=== PATIENT | male | born 1960 | race Caucasian/White ===

== ENCOUNTER 2020-08-03 13:48 | Outpatient (CLI) | payer OTHER ==
--- NOTE | 2020-08-03 15:03 | RAD ---
Exam: Lumbar spine 4 views HISTORY: Back pain, worsening. FINDINGS: Lateral neutral, lateral flexion and lateral extension views demonstrate 5 lumbar type vert ebra. Vertebral body heights are maintained. There is no fracture. Spondylolisthesis: L5-S1: 3.8 mm of anterolisthesis in the neutral position, 6 mm of anterolisthesis upon flexion, 3.9 mm anterolisthesis upon extension There is multilevel facet arthropathy at L3-L4, L4-L5 and L5-S1. Hip prosthesis is noted IMPRESSION: 1. Grade 1 anterolisthesis of L5 upon S1 which increases upon flexion
--- NOTE | 2020-08-03 15:59 | CT ---
Exam: CT lumbar spine without contrast HISTORY: Low back pain. Bilateral buttock pain. Symptoms radiate down the right leg to his foot. COMPARISON: None FINDINGS: Sludge and stones in the gallbladder. Nonobstructive calculi in the right renal pelvis. Sym metric attenuation the paraspinal muscles. Visualized alimentary canal has a normal appearance. 4. Lumbar type vertebra. Lumbar spine vertebral body height is maintained. No fracture. No spondyloli sthesis or spondylolysis. T10-T11: Vacuum disc phenomenon. No posterior disc abnormality. No significant central canal stenosis . Patent bilateral neural foramina T11-T12: No significant central canal stenosis or significant neural foraminal narrowing T12-L1: No significant central canal stenosis or significant neural foraminal narrowing L1-L2: Broad-based disc bulge with resultant mild central canal stenosis. Patent bilateral neural for sofie L2 to-L3: Broad-based disc bulge, ligament flavum thickening and facet hypertrophy result in mild rodney tral canal stenosis. Mild bilateral neural foramina L3-L4: Broad-based disc bulge. Mild central canal stenosis and mild bilateral foraminal narrowing L4-S1: Broad-based disc bulge. Mild central canal stenosis. Mild to moderate bilateral neural foramin al narrowing. There is bilateral facet hypertrophy with vacuum joint phenomenon involving the right facet joint. IMPRESSION: Multilevel degenerative changes of the lumbar spine as detailed above. Transcribed Date/Time: 08/03/2020 4:14 PM
== END 2020-08-03 13:49 | disposition home or self-care (01) ==
LOC: SCSCT 13:48
PROVIDERS: ATTEND Neurological Surgery
DX: M47.26 Other spondylosis with radiculopathy, lumbar region (principal); M43.17 Spondylolisthesis, lumbosacral region
CPT/HCPCS: 72100; 72131

== ENCOUNTER 2020-10-27 08:19 | Outpatient (CLI) | payer OTHER ==
[2020-10-27 14:53] LABS: Mean Corpuscular HGB CONC 33.2 G/DL (32.0-36.0); Mean Corpuscular Hemoglobin 33.1 PG (27.0-33.0); Mean Corpuscular Volume 99.7 fl (80.0-100.0); Platelet Count 185 10x3/uL (130-400); RBC Distribution Width 13.7 % (11.5-14.5); Red Blood Cell (RBC) Count 3.32 10x6/uL (4.40-5.80)
[2020-10-27 15:16] LABS: Anion Gap 14 mmol/L (10-20); BUN (Urea Nitrogen) 20 mg/dL (8.4-25.7); Calc. Creatinine Clearance 0 mL/min (70-130); Calcium 8.7 mg/dL (7.8-10.44); Carbon Dioxide 19 mmol/L (22-29); Chloride 111 mmol/L (98-107); Glucose 192 mg/dL (70-105); Potassium 4.1 mmol/L (3.5-5.1); Sodium 140 mmol/L (136-145)
[2020-10-28 01:37] LABS: SARS-CoV-2 MS2 Positive; SARS-CoV-2 N Gene Negative; SARS-CoV-2 S Gene Negative; SARS-CoV-2 by NAA Not Detected (NotDetected); SARS-CoV-2 orf1ab Negative
== END 2020-10-27 08:20 | disposition home or self-care (01) ==
LOC: LABBT 08:19
PROVIDERS: ATTEND Neurological Surgery
DX: Z01.818 Encounter for other preprocedural examination (principal); Z01.812 Encounter for preprocedural laboratory examination; M43.16 Spondylolisthesis, lumbar region; Z20.822 Contact with and (suspected) exposure to COVID-19
CPT/HCPCS: 80048; 85027; 87635; 93005; 93010; U0003; U0005

== ENCOUNTER 2022-10-17 13:33 | Outpatient (CLI) | payer OTHER | END 2022-10-17 13:34 | disposition home or self-care (01) | LOC: MRI 13:33 | PROVIDERS: ATTEND Neurological Surgery | DX: M54.2 Cervicalgia (principal); M47.812 Spondylosis without myelopathy or radiculopathy, cervical region; M48.02 Spinal stenosis, cervical region | CPT/HCPCS: 72141 ==